=== PATIENT | female | born 1980 | race Caucasian/White ===

== ENCOUNTER 2017-07-31 21:35 | Emergency (ER) | payer OTHER ==
[2017-07-31 21:52] VITALS: BP 123/81; PULSE 85; TEMP 98.1; BMI 40.0
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
[2017-07-31] MEDS ORDERED: KETOROLAC TROMETHAMINE 60 MG/2 ML VIAL IM ONE (22:46)
[2017-07-31] MEDS ORDERED: KETOROLAC TROMETHAMINE 60 MG/2 ML VIAL ONE (23:12)
== END 2017-07-31 23:44 | disposition home or self-care (01) ==
LOC: JER 21:35
PROC: 3E0233Z Introduction of Anti-inflammatory into Muscle, Percutaneous Approach (ICD-10-PCS; principal; 2017-07-31)
DX: M25.511 Pain in right shoulder (principal); M43.6 Torticollis
CPT/HCPCS: 84703; 96372; 99281-25

== ENCOUNTER 2023-03-08 16:19 | Emergency (ER) | payer OTHER ==
[2023-03-08 16:32] VITALS: BP 106/76; PULSE 86; RESP 20; TEMP 98.7; BMI 41.3
[2023-03-08] MEDS ORDERED: KETOROLAC TROMETHAMINE 30 MG/1 ML VIAL IM ONE (17:31)
[2023-03-08] MEDS ORDERED: CYCLOBENZAPRINE HCL 10 MG TABLET (FP) PO ONE (17:32)
[2023-03-08] MEDS ORDERED: KETOROLAC TROMETHAMINE 30 MG/1 ML VIAL ONE (17:52)
[2023-03-08] MEDS ORDERED: CYCLOBENZAPRINE HCL 10 MG TABLET (FP) ONE (17:52)
== END 2023-03-08 19:11 | disposition home or self-care (01) ==
LOC: JERFT 16:19
PROC: 3E0233Z Introduction of Anti-inflammatory into Muscle, Percutaneous Approach (ICD-10-PCS; principal; 2023-03-08)
DX: M19.022 Primary osteoarthritis, left elbow (principal); M79.602 Pain in left arm
CPT/HCPCS: 73070-TC-LT-FY; 73130-TC-LT-FY; 73560-TC-LT-FY; 73610-TC-LT-FY; 73630-TC-LT; 99285-25